=== PATIENT | male | born 1970 | race Caucasian/White ===

== ENCOUNTER → 2022-07-09 15:15 | Outpatient (CLI) | payer BC, SELFPAY ==
[2022-07-09 21:04] LABS: Basophils # 0.2 K/mm3 (0-0.2); Basophils % 2.2 % (0.1-2.0); Eosinophils # 0.1 K/mm3 (0.0-0.4); Hematocrit 48.8 % (42.0-52.0); Hemoglobin 16.4 g/dL (14.1-18.0); Lymphocytes # 1.9 K/mm3 (0.7-4.5); Lymphocytes % 27.6 % (10-50); Mean Corpuscular HGB Conc 33.5 g/dL (31.8-35.4); Mean Corpuscular Hemoglobin 30.3 pg (27.0-31.2); Mean Corpuscular Volume 90.2 fl (80-94); Mean Platelet Volume 7.9 fl (7.4-10.4); Monocytes # 0.5 K/mm3 (0.1-1.0); Monocytes % 6.6 % (1.7-9.3); Neutrophils # 4.2 K/mm3 (1.8-7.8); Neutrophils % 61.6 % (37.0-80.0); Platelet Count 285 K/mm3 (142-424); Red Blood Count 5.41 M/mm3 (4.60-6.20); Red Cell Distribution Width 12.8 % (11.5-17.5); White Blood Count 6.8 K/mm3 (4.8-10.8)
[2022-07-09 21:09] LABS: Alanine Aminotransferase 49 U/L (12-78); Albumin Level 4.4 g/dl (3.5-5.0); Albumin/Globulin Ratio 1.6 (1.1-1.8); Alkaline Phosphatase 116 U/L (38-126); Aspartate Amino Transferase 41 U/L (17-59); Bilirubin,Total 0.7 mg/dl (0.2-1.3); Blood Urea Nitrogen 16 mg/dl (9-20); Calcium 9.3 mg/dl (8.4-10.2); Carbon Dioxide 27 mmol/L (22.0-30.0); Chloride 99 mmol/L (98-107); Chol/HDL Ratio 4.9 (1-3.5); Cholesterol 214 mg/dl (140-200); Estimated Glomerular Filt Rate 88 ml/min (>60); GFR (African American) 107 ML/MIN (>60); Globulin 2.7 g/dL (1.3-3.2); Glucose 101 mg/dl (74-100); HDL Cholesterol 44 mg/dl (40-60); Sodium 139 mmol/L (136-145); Total Protein,Serum 7.1 g/dl (6.3-8.2); Triglycerides 247 mg/dl (30-150); VLDL Cholesterol 49 mg/dL (0-40)
[2022-07-09 21:21] LABS: Hemoglobin A1C 5.2 % (4.0-6.0)
[2022-07-09 21:35] LABS: Anion Gap 17.3 mEq/L (5-15); Potassium 4.3 mmoL/L (3.5-5.1)
[2022-07-09 21:40] LABS: Thyroid Stimulating Hormone 2.18 uIU/mL (0.465-4.68)
[2022-07-09 21:59] LABS: Vitamin B12 675 pg/mL (239-931)
[2022-07-11 08:18] LABS: Testosterone,Total 254 ng/dL (264-916)
== END ==
PROVIDERS: PCP Nurse Practitioner; Visit Provider Nurse Practitioner
DX: R53.83 Other fatigue (principal); L82.1 Other seborrheic keratosis; Z12.5 Encounter for screening for malignant neoplasm of prostate
CPT/HCPCS: 80053; 80061; 82306; 82607; 83036; 84403; 84443; 85025; G0103